=== PATIENT | male | born 1960 | race Caucasian/White ===

== ENCOUNTER 2018-03-13 14:48 | Emergency (ER) | payer SELFPAY ==
[~2018-03-13] VITALS: Ht 167.6 cm; Wt 62.0 kg
[~2018-03-13 14:48] MED LIST: HYDR-971 PO; NAPR-514 PO; PRED50TA PO; TRAM50TA PO
[2018-03-13 14:50] VITALS: BP 135/74
[2018-03-13] MEDS ORDERED: CYCL-331 PO (15:24)
[2018-03-13] MEDS ORDERED: PRED50TA PO (15:24)
[2018-03-13] MEDS ORDERED: predniSONE 20 MG TABLET PO ONE (15:30)
--- NOTE | 2018-03-13 15:53 | RAD ---
EXAM: Lumbar spine, 3 views. HISTORY: Pain. COMPARISON: None. FINDINGS: 3 views of the lumbar spine are obtained. There is slight retrolisthesis of L2 on L3 and L3 on L4, a component of which may be projectional. There is degenerative endplate remodeling with disc space narrowing and osteophytosis primarily at L2-L3. There is facet arthropathy predominantly at L5-S1. There is no fracture. IMPRESSION: 1. Degenerative change primarily at L2-L3 and L5-S1. 2. No acute osseous finding. Electronically signed by: Emmy Grace MD (03/13/2018 3:49 PM) [facility]
--- NOTE | 2018-03-13 18:42 | PHYS DOC ---
Past History Past Medical History: Kidney Stones, Prostatitis Past Surgical History: No Surgical History Smoking: Cigarettes, Greater than 1 pack/day Alcohol Use: Occasionally Drug Use: None Adult General Chief Complaint Chief Complaint: BACK PAIN OR INJURY [facility] HPI 50-year-old male presents with right low back pain with radiation down his posterior leg to his foot. Patient states that this started yesterday. He did not do anything in particular that he thinks would've irritated. He denies trauma or falls. The radiating pain as a tingling/electrical feeling that goes down his fussiness foot. Patient denies history of diabetes or neuropathy. He has no history of back surgeries. He denies fever, chills, dysuria, urinary frequency. He has no other complaints. Review of Systems Review of Systems Constitutional: Denies fever or chills [] Eyes: Denies change in visual acuity, redness, or eye pain [] HENT: Denies nasal congestion or sore throat [] Respiratory: Denies cough or shortness of breath [] Cardiovascular: No additional information not addressed in HPI [] GI: Denies abdominal pain, nausea, vomiting, bloody stools or diarrhea [] : Denies dysuria or hematuria [] Musculoskeletal: Back pain with radiation to the right leg[] Integument: Denies rash or skin lesions [] Neurologic: Denies headache, focal weakness or sensory changes [] Endocrine: Denies polyuria or polydipsia [] All other systems were reviewed and found to be within normal limits, except as documented in this note. Current Medications Current Medications Current Medications Medications (Trade) Dose [place]dered [facility] Start Time Stop Time Status Last Admin Dose Admin Prednisone (Prednisone) 60 mg 1X ONCE 03/13/18 15:30 03/13/18 15:40 DC 03/13/18 15:42 60 MG Allergies Allergies Allergies Coded Allergies Type Severity Reaction Last Updated Verified No Known Drug Allergies 12/01/13 No Physical Exam Physical Exam Constitutional: Well developed, well nourished, no acute distress, non-toxic appearance. [] HENT: Normocephalic, atraumatic, bilateral external ears normal, oropharynx moist, no oral exudates, nose normal. [] Eyes: PERRLA, EOMI, conjunctiva normal, no discharge. [] Neck: Normal range of motion, no tenderness, supple, no stridor. [] Cardiovascular:Heart rate regular rhythm, no murmur [] Lungs & Thorax: Bilateral breath sounds clear to auscultation [] Abdomen: Bowel sounds normal, soft, no tenderness, no masses, no pulsatile masses. [] Skin: Warm, dry, no erythema, no rash. [] Back: No tenderness, no CVA tenderness. [] Extremities: No tenderness, no cyanosis, no clubbing, ROM intact, no edema. Pain with palpation over the right piriformis distribution.[] Neurologic: Alert and oriented X 3, normal motor function, normal sensory function, no focal deficits noted. [] Psychologic: Affect normal, judgement normal, mood normal. [] Current Patient Data Vital Signs Vital Signs Date Time Temp Pulse Resp B/P (MAP) Pulse Ox O2 Delivery O2 Flow Rate FiO2 03/13/18 14:50 98.3 92 18 96 Room Air EKG EKG [] Radiology/Procedures Radiology/Procedures [] Course & Med Decision Making Course & Med Decision Making Pertinent Labs and Imaging studies reviewed. (See chart for details) Patient appears to have right-sided piriformis spasm that is causing his sciatic symptoms. I will treat him with prednisone in the ED and for home. I will also provide exercises for stretching. Patient states verbal understanding is in agreement with this plan. If he has further trouble he will seek care from his PCP to consider physical therapy. He is stable for discharge at this time. [] Dragon Disclaimer Dragon Disclaimer This electronic medical record was generated, in whole or in part, using a voice recognition dictation system. Departure Departure: Impression: Primary Impression: Piriformis syndrome of left side Disposition: 01 HOME, SELF-CARE Condition: STABLE Patient Instructions: Piriformis Syndrome with [facility] Scripts Cyclobenzaprine Hcl (CYCLOBENZAPRINE HCL) 10 Mg Tablet 1 TAB PO TID PRN for MUSCLE SPASMS, #30 TAB Prov: NAZIA DICKSON DO 03/13/18 Prednisone (PREDNISONE) 50 Mg Tablet 1 TAB PO DAILY, #5 TAB Prov: NAZIA DICKSON DO 03/13/18 NAZIA DICKSON DO Mar 13, 2018 18:42
== END 2018-03-13 15:44 | disposition home or self-care (01) ==
LOC: ER 14:48
DX: G57.02 Lesion of sciatic nerve, left lower limb (principal); F17.210 Nicotine dependence, cigarettes, uncomplicated; Z87.442 Personal history of urinary calculi
CPT/HCPCS: 72100; 99284; J7512

== ENCOUNTER 2019-05-17 10:11 | Emergency (ER) | payer SELFPAY ==
[~2019-05-17] VITALS: Ht 167.6 cm; Wt 62.0 kg
[~2019-05-17 10:11] MED LIST changes: +CYCL-331 PO; +HYDR-3165 PO; -HYDR-971 PO
[2019-05-17 10:37] VITALS: BP 149/84
--- NOTE | 2019-05-17 10:41 | PHYS DOC ---
Past History Past Medical History: Kidney Stones, Prostatitis Past Surgical History: No Surgical History Smoking: Cigarettes, Greater than 1 pack/day Alcohol Use: Occasionally Drug Use: None Adult General Chief Complaint Chief Complaint: BACK PAIN OR INJURY HPI HPI Patient is a [age] year old [sex] who presents with [] Review of Systems Review of Systems Constitutional: Denies fever or chills [] Eyes: Denies change in visual acuity, redness, or eye pain [] HENT: Denies nasal congestion or sore throat [] Respiratory: Denies cough or shortness of breath [] Cardiovascular: No additional information not addressed in HPI [] GI: Denies abdominal pain, nausea, vomiting, bloody stools or diarrhea [] : Denies dysuria or hematuria [] Musculoskeletal: Denies back pain or joint pain [] Integument: Denies rash or skin lesions [] Neurologic: Denies headache, focal weakness or sensory changes [] Endocrine: Denies polyuria or polydipsia [] All other systems were reviewed and found to be within normal limits, except as documented in this note. Allergies Allergies Allergies Coded Allergies Type Severity Reaction Last Updated Verified No Known Drug Allergies 12/01/13 No Physical Exam Physical Exam Constitutional: Well developed, well nourished, no acute distress, non-toxic appearance. [] HENT: Normocephalic, atraumatic, bilateral external ears normal, oropharynx moist, no oral exudates, nose normal. [] Eyes: PERRLA, EOMI, conjunctiva normal, no discharge. [] Neck: Normal range of motion, no tenderness, supple, no stridor. [] Cardiovascular:Heart rate regular rhythm, no murmur [] Lungs & Thorax: Bilateral breath sounds clear to auscultation [] Abdomen: Bowel sounds normal, soft, no tenderness, no masses, no pulsatile masses. [] Skin: Warm, dry, no erythema, no rash. [] Back: No tenderness, no CVA tenderness. [] Extremities: No tenderness, no cyanosis, no clubbing, ROM intact, no edema. [] Neurologic: Alert and oriented X 3, normal motor function, normal sensory function, no focal deficits noted. [] Psychologic: Affect normal, judgement normal, mood normal. [] EKG EKG [] Radiology/Procedures Radiology/Procedures [] Course & Med Decision Making Course & Med Decision Making Pertinent Labs and Imaging studies reviewed. (See chart for details) [] Dragon Disclaimer Dragon Disclaimer This electronic medical record was generated, in whole or in part, using a voice recognition dictation system. Departure Departure: Impression: Primary Impression: Back pain Disposition: HOME, SELF-CARE Condition: STABLE Referrals: PCP,NO (PCP) Patient Instructions: Back Pain, Adult, [id number], Low Back Strain with [facility]hab[facility] Additional Instructions: ICE area 20 min on then leave off for next 20 min. Repeat as needed for next few days. Call and make appointment in the next 2-5 days with: [facility] [place] [address], [address] [place] [address] Scripts Hydrocodone Bit/Acetaminophen (NORCO 5-325 TABLET) 1 Each Tablet 0.5-1 TAB PO Q6HRS PRN for PAIN, #10 TAB Prov: ROSARIO LORENZ DO 05/17/19 Lidocaine (Lidocaine PATCH ) 1 Each Adh..patch 1 EACH TP DAILY for FOR LOCAL PAIN, #10 PATCH REMOVE AFTER 12 HOURS Prov: ROSARIO LORENZ DO 05/17/19 Naproxen (NAPROXEN) 375 Mg Tablet 1 TAB PO TID PRN PRN for PAIN, #20 TAB 0 Refills with food Prov: ROSARIO LORENZ DO 05/17/19 Prednisone (PREDNISONE) 20 Mg Tablet 2 TAB PO DAILY for Back pain, #8 TAB Start this prescription tomorrow, 05/18/19 Prov: ROSARIO LORENZ DO 05/17/19 Orphenadrine Citrate (ORPHENADRINE CITRATE) 100 Mg Tablet.er 1 TAB PO BID PRN for MUSCLE PAIN, #14 TAB 0 Refills Prov: ROSARIO LORENZ DO 05/17/19 Problem Qualifiers Primary Impression: Back pain Back pain location: low back pain Chronicity: acute Back pain laterality: right Sciatica presence: without sciatica Qualified Codes: M54.5 - Low back pain ROSARIO LORENZ DO May 17, 2019 10:41
[2019-05-17] MEDS ORDERED: DEXAMETHASONE 4 MG TABLET PO ONE (11:15)
[2019-05-17] MEDS ORDERED: KETOROLAC 30 MG/ML VIAL. IM ONE (11:15)
[2019-05-17] MEDS ORDERED: ORPHENADRINE CITRATE 60 MG/2 ML VIAL. IM ONE (11:15)
[2019-05-17] MEDS ORDERED: LIDO700A21 TP (11:19)
[2019-05-17] MEDS ORDERED: NAPR-695 PO (11:19)
[2019-05-17] MEDS ORDERED: PRED20TA PO (11:19)
[2019-05-17] MEDS ORDERED: HYDR-3165 PO (11:19)
[2019-05-17] MEDS ORDERED: ORPH-16 PO (11:19)
[2019-05-17] MEDS ORDERED: DEXAMETHASONE 4 MG TABLET ONE (11:22)
[2019-05-17] MEDS ORDERED: ORPHENADRINE CITRATE 60 MG/2 ML VIAL. ONE (11:23)
[2019-05-17] MEDS ORDERED: KETOROLAC 30 MG/ML VIAL. ONE (11:23)
== END 2019-05-17 11:35 | disposition home or self-care (01) ==
LOC: ER 10:11
DX: M54.5 Low back pain (principal); F17.210 Nicotine dependence, cigarettes, uncomplicated; Z87.442 Personal history of urinary calculi
CPT/HCPCS: 96372; 99284; J1885; J2360; J8540

== ENCOUNTER 2021-07-21 10:12 | Emergency (ER) | payer SELFPAY ==
[~2021-07-21] VITALS: Ht 170.2 cm; Wt 61.0 kg
[~2021-07-21 10:12] MED LIST changes: -CYCL-331 PO; +CYCL10TA19 PO; +LIDO700A21 TP; +NAPR-695 PO; +ORPH-16 PO; +PRED20TA PO
[2021-07-21] MEDS ORDERED: IOHEXOL 300 MG/ML 75 ML VIAL. IV ONE (10:30)
[2021-07-21] MEDS ORDERED: IV NORMAL SALINE 1,000ML 1,000 ML IV ONE (10:30)
[2021-07-21] MEDS ORDERED: ONDANSETRON PF 4 MG/2 ML VIAL. IVP ONE (10:30)
--- NOTE | 2021-07-21 10:42 | PHYS DOC ---
Past History Past Medical History: No Pertinent History Past Surgical History: No Surgical History Smoking: Cigarettes, Greater than 1 pack/day Alcohol Use: None Drug Use: None General Adult EDM: Chief Complaint: ABDOMINAL PAIN HPI: HPI: 61-year-old male presents with concern about his hernia. The patient has an inguinal hernia that he has not had repaired. It has been more prominent and much more painful over the last 2 days. He describes the pain as a sharp cramping. He went to urgent care who sent him to the emergency room. Denies fever or chills. Review of Systems: Review of Systems: Constitutional: Denies fever or chills Eyes: Denies change in visual acuity HENT: Denies nasal congestion or sore throat Respiratory: Denies cough or shortness of breath Cardiovascular: Denies chest pain or edema GI: Right lower quadrant abdominal pain. Denies nausea, vomiting, bloody stools or diarrhea : Denies dysuria Musculoskeletal: Denies back pain or joint pain Integument: Denies rash Neurologic: Denies headache, focal weakness or sensory changes Endocrine: Denies polyuria or polydipsia Lymphatic: Denies swollen glands Psychiatric: Denies depression or anxiety Current Medications: Current Meds: Current Medications Medications (Trade) Dose Ordered Sig/Jayro Start Time Stop Time Status Last Admin Dose Admin Info (Do NOT chart on this entry -- for MONITORING) 1 each PRN DAILY PRN 07/21/21 10:45 07/23/21 10:44 Iohexol (Omnipaque 300 Mg/ml) 75 ml 1X ONCE 07/21/21 10:30 07/21/21 10:32 DC Ondansetron HCl (Zofran) 4 mg 1X ONCE 07/21/21 10:30 07/21/21 10:32 DC Sodium Chloride 1,000 ml @ 1,000 mls/hr 1X ONCE 07/21/21 10:30 07/21/21 11:29 Allergies: Allergies: Allergies Coded Allergies Type Severity Reaction Last Updated Verified No Known Drug Allergies 12/01/13 No Physical Exam: PE: Constitutional: Well developed, well nourished, no acute distress, non-toxic appearance. [] HENT: Normocephalic, atraumatic, bilateral external ears normal, oropharynx moist, no oral exudates, nose normal. [] Eyes: PERRLA, EOMI, conjunctiva normal, no discharge. [] Neck: Normal range of motion, no tenderness, supple, no stridor. [] Cardiovascular: Heart rate regular rhythm, no murmur [] Lungs & Thorax: Bilateral breath sounds clear to auscultation [] Abdomen: Bowel sounds normal, soft, right lower quadrant tenderness, no masses, no pulsatile masses. [] Skin: Warm, dry, no erythema, no rash. [] Back: No tenderness, no CVA tenderness. [] Extremities: No tenderness, no cyanosis, no clubbing, ROM intact, no edema. [] Neurologic: Alert and oriented X 3, normal motor function, normal sensory function, no focal deficits noted. [] Psychologic: Affect normal, judgement normal, mood normal. [] Current Patient Data: Vital Signs: Vital Signs Date Time Temp Pulse Resp B/P (MAP) Pulse Ox O2 Delivery O2 Flow Rate FiO2 07/21/21 10:24 98.1 85 16 139/89 (106) 98 EKG: EKG: [] Radiology/Procedures: Radiology/Procedures: [] Impressions: EXAM: CT ABDOMEN/PELVIS WITH CONTRAST. HISTORY: Abdominal pain, hernia. TECHNIQUE: Computed tomography of the abdomen and pelvis was performed after the intravenous administration of iodinated contrast. One or more of the following individualized dose reduction techniques were utilized for this examination: 1. Automated exposure control. 2. Adjustment of the mA and/or kV according to patient size. 3. Use of iterative reconstruction technique. COMPARISON: None. FINDINGS: Lung windows through the visualized portions of the bases reveal moderate centrilobular emphysema. An uncalcified left lower lobe nodule on image one measures 3 mm and is most likely benign at this small size. Bone windows reveal no suspicious lesions. The appendix is not inflamed. There is no small bowel obstruction. Tiny hypoattenuating lesions scattered throughout the liver most likely reflect cyst or hardy Meyenburg complex. The largest measures 1.2 cm in segment 6. The majority measure <5 mm. The spleen, gallbladder, pancreas, adrenal glands and left kidney are unremarkable. Small calculi in the right kidney measure 3 mm or less. There are no ureteral calculi. There is diffuse atherosclerotic irregularity and aneurysmal dilatation of the abdominal aorta. Its greatest diameter is 3.0 cm an infrarenal portion. There is extensive mural thrombus throughout the abdominal aorta and the residual flow lumen is narrowed to 7 mm inferiorly. The left common, external and internal iliac arteries are occluded. There is reconstitution of the left common femoral artery via collaterals. The right common and external iliac arteries are at least moderately stenotic. The right internal iliac artery is severely diseased. No abdominal wall hernia or other mass is identified. IMPRESSION: 1. No abdominal wall hernia or mass is identified. Correlate for the site of surgery. 2. Small abdominal aortic aneurysm at 3.0 cm. There is diffuse mural thrombus resulting in abdominal aortic stenosis with minimal diameter 0.7 cm. The left iliac arterial systems are occluded with reconstitution of the left common femoral artery. They are moderately to severely diseased on the right. 3. 3 mm right renal calculi. 4. Moderate centrilobular emphysema. Electronically signed by: Rosalee Weaver MD (07/21/2021 11:10 AM) [id number] DICTATED AND SIGNED BY: KAYKAY WEAVER MD DATE: 07/21/21 1101 CC: NAZIA DICKSON DO; PCP,NO ~MTH0 0 Heart Score: C/O Chest Pain: N/A Risk Factors: Risk Factors: DM, Current or recent (<one month) smoker, HTN, HLP, family history of CAD, obesity. Risk Scores: Score 0 - 3: 2.5% MACE over next 6 weeks - Discharge Home Score 4 - 6: 20.3% MACE over next 6 weeks - Admit for Clinical Observation Score 7 - 10: 72.7% MACE over next 6 weeks - Early Invasive Strategies Course & Med Decision Making: Course & Med Decision Making Pertinent Labs and Imaging studies reviewed. (See chart for details) The patient's labs are unremarkable. His CT of the abdomen and pelvis does not show complications with hernia however he has a borderline aortic aneurysm at 3 cm. He has extensive intraluminal thrombus with flow narrowing down to 7 mm. He also has a completely occluded iliac artery on the left with collaterals patent and significant stenosis in other locations on the left and right. I discussed the results with the patient and stressed the importance of him seeing a vascular surgeon. Patient is currently unemployed and without insurance. He understands that this is very serious. He will attempt to get insurance or Medicaid as soon as possible, establish with a PCP and get a referral to a surgeon. Urinalysis is negative for infection. He is stable for discharge at this time. [] Sebastián Disclaimer: Dragon Disclaimer: This electronic medical record was generated, in whole or in part, using a voice recognition dictation system. Departure Departure: Impression: Primary Impression: Aortic aneurysm, abdominal Qualified Codes: I71.4 - Abdominal aortic aneurysm, without rupture Additional Impressions: Aortic mural thrombus Iliac artery occlusion, left Disposition: HOME / SELF CARE / HOMELESS Condition: STABLE Referrals: PCP,NO (PCP) Patient Instructions: Abdominal Aortic Aneurysm-Brief, Aortic Stenosis Additional Instructions: Please establish insurance and make an appointment with a primary care provider soon as possible. You need to ask them for a vascular surgeon referral. NAZIA DICKSON DO Jul 21, 2021 10:42
[2021-07-21] MEDS ORDERED: CONTRAST GIVEN. MC PRN (10:45)
--- NOTE | 2021-07-21 11:12 | RAD ---
EXAM: CT ABDOMEN/PELVIS WITH CONTRAST. HISTORY: Abdominal pain, hernia. TECHNIQUE: Computed tomography of the abdomen and pelvis was performed after the intravenous administ ration of iodinated contrast. One or more of the following individualized dose reduction techniques w ere utilized for this examination: 1. Automated exposure control. 2. Adjustment of the mA and/or kV according to patient size. 3. Use of iterative reconstruction technique. COMPARISON: None. FINDINGS: Lung windows through the visualized portions of the bases reveal moderate centrilobular emp hysema. An uncalcified left lower lobe nodule on image one measures 3 mm and is most likely benign at this small size. Bone windows reveal no suspicious lesions. The appendix is not inflamed. There is no small bowel obstruction. Tiny hypoattenuating lesions scattered throughout the liver most likely reflect cyst or hardy Meyenbur g complex. The largest measures 1.2 cm in segment 6. The majority measure <5 mm. The spleen, gallbladder, pancreas, adrenal glands and left kidney are unremarkable. Small calculi in the right kidney measure 3 mm or less. There are no ureteral calculi. There is diffuse atherosclerotic irregularity and aneurysmal dilatation of the abdominal aorta. Its g reatest diameter is 3.0 cm an infrarenal portion. There is extensive mural thrombus throughout the ab dominal aorta and the residual flow lumen is narrowed to 7 mm inferiorly. The left common, external a nd internal iliac arteries are occluded. There is reconstitution of the left common femoral artery vi a collaterals. The right common and external iliac arteries are at least moderately stenotic. The rig ht internal iliac artery is severely diseased. No abdominal wall hernia or other mass is identified. IMPRESSION: 1. No abdominal wall hernia or mass is identified. Correlate for the site of surgery. 2. Small abdominal aortic aneurysm at 3.0 cm. There is diffuse mural thrombus resulting in abdominal aortic stenosis with minimal diameter 0.7 cm. The left iliac arterial systems are occluded with recon stitution of the left common femoral artery. They are moderately to severely diseased on the right. 3. 3 mm right renal calculi. 4. Moderate centrilobular emphysema. Electronically signed by: Rosalee Weaver MD (07/21/2021 11:10 AM) [id number]
[2021-07-21 11:16] LABS: BASO # 0.1 x10^3/uL (0.0-0.2); BASO % 1 % (0-3); EOS # 0.3 x10^3/uL (0.0-0.7); EOS % 3 % (0-3); HEMOGLOBIN 15.1 g/dL (13.0-17.5); LYMPH # 2.7 x10^3/uL (1.0-4.8); LYMPH % 28 % (24-48); MEAN CORPUSCULAR HEMOGLOBIN 32 pg (25-35); MEAN CORPUSCULAR HGB CONC 34 g/dL (31-37); MEAN CORPUSCULAR VOLUME 94 fL (79-100); MONO # 0.6 x10^3/uL (0.0-1.1); MONO % 6 % (0-9); NEUT # 6.1 x10^3uL (1.8-7.7); NEUT % 63 % (31-73); PLATELET COUNT 228 x10^3/uL (140-400); RED BLOOD COUNT 4.68 x10^6/uL (4.30-5.70); RED CELL DISTRIBUTION WIDTH 14.2 % (11.5-14.5); WHITE BLOOD COUNT 9.8 x10^3/uL (4.0-11.0)
[2021-07-21 11:19] LABS: CALCIUM 9.1 mg/dL (8.5-10.1); CREATININE 0.9 mg/dL (0.7-1.3); GFR 85.8; POTASSIUM 4.7 mmol/L (3.5-5.1)
[2021-07-21 11:24] LABS: ALBUMIN 3.9 g/dL (3.4-5.0); TOTAL BILIRUBIN 0.3 mg/dL (0.2-1.0); TOTAL PROTEIN 7.7 g/dL (6.4-8.2)
[2021-07-21 12:24] LABS: CLARITY,URINE CLEAR; COLOR,URINE YELLOW
[2021-07-21 12:25] LABS: BACTERIA,URINE 0 /HPF (0-FEW); BILIRUBIN,URINE NEG (NEG); GLUCOSE,URINE NEG (NEG); NITRITE,URINE NEG (NEG); RBC,URINE 0 /HPF (0-2); UROBILINOGEN,URINE 0.2 mg/dL (0.2 mg/dL); WBC,URINE 0 /HPF (0-4)
[2021-07-21 13:04] VITALS: BP 132/70
== END 2021-07-21 13:04 | disposition home or self-care (01) ==
LOC: ER 10:12
DX: I71.4 Abdominal aortic aneurysm, without rupture (principal); I21.9 Acute myocardial infarction, unspecified; I74.5 Embolism and thrombosis of iliac artery; F17.210 Nicotine dependence, cigarettes, uncomplicated
CPT/HCPCS: 36415; 74177; 80053; 81001; 85025; 96360; 99285; J7030; Q9967